=== PATIENT | female | born 1980 | race Caucasian/White ===

== ENCOUNTER 2020-11-11 21:31 | Inpatient (IN) ==
[2020-11-11] MEDS ORDERED: OXYTOCIN 30 UNITS/500 ML BAG IV PRN (22:21)
[2020-11-11] MEDS ORDERED: PENICILLIN G POTASSIUM 6 MU in DEXTROSE 5% 250 ML IV STA (22:22)
[2020-11-11 22:57] LABS: Hematocrit (blood only) 36.4 % (37-47); Hemoglobin 12.6 g/dL (12.0-16.0); Mean Corpuscular Hemoglobin 31.6 pg (25-34); Mean Corpuscular Hgb Conc 34.6 g/dL (32-36); Mean Corpuscular Volume 91.2 fL (80-100); Mean Platelet Volume 10.9 fL (7.4-10.4); Platelet Count 258 K/uL (130-400); RDW Coefficient of Variation 13.8 % (11.5-14.5); RDW Standard Deviation 45.4 fL (36.4-46.3); Red Blood Count 3.99 M/uL (4.2-5.4); White Blood Count 15.22 K/uL (4.8-10.8)
[2020-11-11] MEDS: LACTATED RINGER'S 1,000 ML IV PRN (22:58)
[2020-11-12] MEDS ORDERED: BUPIVACAINE 0.25% 30 ML VIAL ONE (01:49)
[2020-11-12] MEDS ORDERED: ePHEDrine sulfate 50 MG/ML AMP ONE (01:49)
[2020-11-12] MEDS ORDERED: fentaNYL citrate 100 MCG/2 ML VIAL ONE (01:49)
[2020-11-12] MEDS ORDERED: SODIUM CHLORIDE 0.9% INJ 10 ML VIAL ONE (01:49)
[2020-11-12] MEDS ORDERED: fentaNYL 2MCG/ML ROPIVACAINE 1.25MG/ML 100 ML BAG EPI ONE (01:50)
[2020-11-12] MEDS: LACTATED RINGER'S 1,000 ML IV PRN ×2 (02:28→07:54)
[2020-11-12] MEDS: PENICILLIN G POTASSIUM 3 MU in DEXTROSE 5% 100 ML IV SCH ×4 (02:28→09:56)
[2020-11-12] MEDS ORDERED: ePHEDrine sulfate 50 MG/ML AMP IV PRN (02:42)
[2020-11-12] MEDS ORDERED: NALOXONE HCL 0.4 MG/1 ML VIAL/CARP IV PRN (02:42)
[2020-11-12] MEDS ORDERED: diphenhydrAMINE 50 MG/ML VIAL IV PRN (02:42)
[2020-11-12] MEDS ORDERED: NALOXONE HCL 1 MG in SODIUM CHLORIDE 0.9% 1000ML 1,000 ML IV PRN (02:42)
[2020-11-12] MEDS ORDERED: fentaNYL 2MCG/ML ROPIVACAINE 1.25MG/ML 100 ML BAG EPI PRN (02:42)
--- NOTE | 2020-11-12 02:42 | Anesthesiology Consultation ---
Date of Service November 12, 2020 Assessment & Plan (1) Encounter for pre-operative examination: Chart Review Chart Review: Acceptable Risk for Surgery and Patient NOT seen in Pre Admission Testing Consults Requested none History Height/Weight Height: 5 ft 9 in Weight: 83.461 kg Allergies Allergy/AdvReac Type Severity Reaction Status Date / Time No Known Allergies Allergy Verified 11/11/20 22:34 Medications Home Medications Medication Instructions Recorded Confirmed Last Taken aspirin [Baby Aspirin] 81 mg PO DAILY 11/11/20 11/11/20 11/10/20 [id number] 1 tab PO 11/11/20 11/10/20 [] Active Medications Generic Name Dose Route Start Last Admin Trade Name Freq PRN Reason Stop Dose Admin Lactated Ringer's 1,000 mls @ 125 mls/hr 11/11/20 22:21 11/12/20 02:28 Lr IV 11/13/20 22:20 125 mls/hr .Q8H PRN Administration L&D Protocol Protocol Penicillin G Potassium 3 mu/ 106 mls @ 100 mls/hr 11/11/20 22:30 11/12/20 02:28 Dextrose IV 11/21/20 22:29 100 mls/hr Q4H DAVID Administration Protocol Past Medical History Medical History History of anxiety Past Surgical History Surgical History H/O colposcopy with cervical biopsy Social History Smoking Status: Never smoker Hx Alcohol Use: No Hx Substance Use: No Physical Exam Vital Signs Last Vital Signs Temp 37.2 C 11/12/20 01:24 Pulse 93 H 11/12/20 02:35 Resp 18 11/12/20 01:24 BP 139/82 11/12/20 01:24 Pulse Ox 97 11/12/20 02:35 Testing Laboratory Results 11/11/20 22:39
[2020-11-12] MEDS ORDERED: OXYTOCIN 30 UNITS/500 ML BAG IV PRN ×2 (04:15→19:06)
[2020-11-12] MEDS ORDERED: PENICILLIN G POTASSIUM 3 MU in DEXTROSE 5% 100 ML IV PRN (12:00)
[2020-11-12] MEDS ORDERED: LIDOCAINE HCL 1% 20 ML VIAL ONE (18:15)
[2020-11-12] MEDS ORDERED: BENZOCAINE 20% AER SPR 82.5 GM CAN EXT PRN (19:06)
[2020-11-12] MEDS ORDERED: bisacodyL 10 MG SUPP PR PRN (19:06)
[2020-11-12] MEDS ORDERED: SUPERCREAM 0.870% 15 GM JAR EXT PRN (19:06)
[2020-11-12] MEDS ORDERED: DIPHTHERIA/TETANUS/PERTUSSIS 0.5 ML SYR/VIAL IM ONE (19:06)
[2020-11-12] MEDS ORDERED: HYDROCORTISONE ACETATE 25 MG SUPP PR PRN (19:06)
--- NOTE | 2020-11-12 19:12 | Delivery Summary ---
Vaginal Delivery Summary Date of Service November 12, 2020 Vaginal Delivery Summary live female with vacuum assist three pulls and no pop offs. Apgars 2/8 with cord obtained for blood gas and cord blood. Placenta delivered spontaneously and intact. Second degree tear repaired with 1% Lidocaine infiltrated on perineum and repaired with 3/0 Vicryl suture. EBL 250 ml. Mom straight cathed for 400 ml chikis urine. Final sponge and needle and instrument count are correct. Mom and baby stable. e
[2020-11-12 19:36] LABS: Base Excess Cord Venous Blood -8.3 mEq/L (-7.7-1.9); Cord Venous Blood HCO3 16 mmol/L (18.4-26.8); Cord Venous Blood PCO2 32 mmHg (30.4-57.2); Cord Venous Blood PO2 33 mmHg (14.1-43.3); Cord Venous Blood pH 7.32 (7.20-7.44)
--- NOTE | 2020-11-12 20:07 | Anesthesia Procedure Note ---
Date of Service November 12, 2020 Anesthesia Post Epidural Note Vital Signs Vital Signs: Temp Pulse Resp BP Pulse Ox 36.3 C L 104 H 22 124/71 96 11/12/20 16:00 11/12/20 19:47 11/12/20 16:00 11/12/20 19:47 11/12/20 18:18 Notes Mental Status: alert / awake / arousable Nausea / Vomiting: adequately controlled Pain: adequately controlled Airway Patency, RR, SpO2: stable & adequate BP & HR: stable & adequate Hydration State: stable & adequate Neuraxial Anesthesia: was administered and sensory block is resolving Anesthetic Complications: no major complications apparent and Pt Satisfied with anesthetic care Epidural: Removed without complications and With tip intact
[2020-11-12] MEDS ORDERED: COUGH DROP (SUGAR FREE) LOZ 24 LOZ/1 BOX BUCCAL STA (20:43)
[2020-11-12] MEDS ORDERED: COUGH DROP (SUGAR FREE) LOZ 24 LOZ/1 BOX BUCCAL ONE (20:45)
[2020-11-12] MEDS: DOCUSATE SODIUM 100 MG CAP PO SCH (20:47)
[2020-11-12] MEDS: IBUPROFEN 600 MG TAB PO PRN (21:08)
[2020-11-13 06:23] LABS: Hematocrit (blood only) 28.6 % (37-47); Hemoglobin 9.9 g/dL (12.0-16.0); Mean Corpuscular Hemoglobin 31.5 pg (25-34); Mean Corpuscular Hgb Conc 34.6 g/dL (32-36); Mean Corpuscular Volume 91.1 fL (80-100); Mean Platelet Volume 10.4 fL (7.4-10.4); Platelet Count 241 K/uL (130-400); RDW Coefficient of Variation 14.3 % (11.5-14.5); RDW Standard Deviation 47.2 fL (36.4-46.3); Red Blood Count 3.14 M/uL (4.2-5.4); White Blood Count 25.98 K/uL (4.8-10.8)
--- NOTE | 2020-11-13 07:51 | Obstetrical Progress Note ---
Date of Service November 13, 2020 Assessment & Plan Admission and Anticipated Discharge Date Admission Date: November 11, 2020 Subjective Patient is seen and examined. She feels well, no complaints other than soreness. Ambulating without dizziness Voiding without difficulty Tolerating regular diet with out N&V Bleeding is minimal No fever/ chills/ CP/ SOB/ N&V/ Leg pain Breast feeding without problems Baby is in nursery. Vital Signs Temp Pulse Pulse Resp BP BP Pulse Ox 11/13/20 04:45 36.5 C 94 H 20 121/72 97 11/12/20 23:10 36.6 C 91 H 20 131/77 98 11/12/20 21:45 36.6 C 89 20 127/82 97 11/12/20 21:02 105 H 127/78 11/12/20 20:47 108 H 128/75 11/12/20 20:32 106 H 129/78 11/12/20 20:17 114 H 121/78 Lab Results 11/11/20 11/11/20 11/11/20 Range/Units 22:25 22:25 22:39 WBC 15.22 H (4.8-10.8) K/uL RBC 3.99 L (4.2-5.4) M/uL Hgb 12.6 (12.0-16.0) g/dL Hct 36.4 L (37-47) % MCV 91.2 (80-100) fL MCH 31.6 (25-34) pg MCHC 34.6 (32-36) g/dL RDW Std Deviation 45.4 (36.4-46.3) fL RDW Coeff of Edilma 13.8 (11.5-14.5) % Plt Count 258 (130-400) K/uL MPV 10.9 H (7.4-10.4) fL Cord VBG pH (7.20-7.44) Cord VBG pCO2 (30.4-57.2) mmHg Cord VBG pO2 (14.1-43.3) mmHg Cord VBG HCO3 (18.4-26.8) mmol/L Cord VBG Base Excess (-7.7-1.9) mEq/L Cord VBG O2 Sat (<68) % Barometric Pressure mm/Hg Blood Gas Comments COVID-19 [facility] SARS-[facility]-2, RNA, NAAT NEGATIVE (NEGATIVE) Direct Antiglob Test HEATHER (IgG-AHG) Baby's Blood Type 11/12/20 11/12/20 11/13/20 Range/Units 18:19 Unknown 06:03 WBC 25.98 H (4.8-10.8) K/uL RBC 3.14 L (4.2-5.4) M/uL Hgb 9.9 L (12.0-16.0) g/dL Hct 28.6 L (37-47) % MCV 91.1 (80-100) fL MCH 31.5 (25-34) pg MCHC 34.6 (32-36) g/dL RDW Std Deviation 47.2 H (36.4-46.3) fL RDW Coeff of Edilma 14.3 (11.5-14.5) % Plt Count 241 (130-400) K/uL MPV 10.4 (7.4-10.4) fL Cord VBG pH 7.32 (7.20-7.44) Cord VBG pCO2 32 (30.4-57.2) mmHg Cord VBG pO2 33 (14.1-43.3) mmHg Cord VBG HCO3 16 L (18.4-26.8) mmol/L Cord VBG Base Excess -8.3 L (-7.7-1.9) mEq/L Cord VBG O2 Sat 68.0 (<68) % Barometric Pressure 727.2 mm/Hg Blood Gas Comments MORE COVID-19 Eval Order SARS-CoV-2, RNA, NAAT (NEGATIVE) Direct Antiglob Test Cancelled HEATHER (IgG-AHG) Cancelled Baby's Blood Type Cancelled PE: General: Alert, orientedx3, NAD Abd: soft, NT, fundus firm, below Umbilicus Perineum intact, Lochia rubra minimal Ext; NT, no edema AP: 40 yo s/p Vacuum assisted , ppd# 1 VSS Afebrile doing well Continue routine care All questions were answered D/C home tomorrow Results & Data ([place]) Vital Signs (Past 12 Hours) Vital Signs Temp Pulse Pulse Resp BP BP Pulse Ox 11/13/20 04:45 36.5 C 94 H 20 121/72 97 11/12/20 23:10 36.6 C 91 H 20 131/77 98 11/12/20 21:45 36.6 C 89 20 127/82 97 11/12/20 21:02 105 H 127/78 11/12/20 20:47 108 H 128/75 11/12/20 20:32 106 H 129/78 11/12/20 20:17 114 H 121/78
[2020-11-13] MEDS ORDERED: FERROUS SULFATE 325 MG TAB PO SCH (08:00)
[2020-11-13] MEDS: DOCUSATE SODIUM 100 MG CAP PO SCH ×2 (08:25→20:40)
[2020-11-13] MEDS: IBUPROFEN 600 MG TAB PO PRN ×2 (08:26→17:04)
[2020-11-13] MEDS: PRENATAL VITAMIN 1 TAB PO SCH (08:26)
[2020-11-13] MEDS: ASPIRIN 81 MG ECTAB PO SCH (08:26)
[2020-11-13] MEDS: ACETAMINOPHEN 325 MG TAB PO PRN ×2 (08:26→17:05)
[2020-11-13] MEDS: FERROUS SULFATE 325 MG TAB PO SCH ×2 (09:03→20:40)
[2020-11-13] MEDS ORDERED: bisacodyL 5 MG TABEC PO SCH (20:00)
[2020-11-14] MEDS: ACETAMINOPHEN 325 MG TAB PO PRN ×2 (06:26→16:45)
[2020-11-14] MEDS: IBUPROFEN 600 MG TAB PO PRN ×3 (06:26→16:45)
[2020-11-14 06:28] LABS: Basophils # (auto) 0.04 K/uL (0-0.2); Basophils % (auto) 0.2 %; Eosinophils % (auto) 1.5 %; Hematocrit (blood only) 26.8 % (37-47); Immature Granulocytes # (auto) 0.26 K/uL (0.00-0.02); Immature Granulocytes % (auto) 1.3 %; Lymphocytes # (auto) 2.66 K/uL (1.2-3.4); Lymphocytes % (auto) 13.4 %; Mean Corpuscular Hgb Conc 33.6 g/dL (32-36); Mean Corpuscular Volume 92.4 fL (80-100); Mean Platelet Volume 10.2 fL (7.4-10.4); Monocytes # (auto) 1.16 K/uL (0.11-0.59); Monocytes % (auto) 5.9 %; Neutrophils # (auto) 15.36 K/uL (1.4-6.5); Neutrophils % (auto) 77.7 %; Platelet Count 245 K/uL (130-400); RDW Coefficient of Variation 14.5 % (11.5-14.5); RDW Standard Deviation 48.9 fL (36.4-46.3); White Blood Count 19.78 K/uL (4.8-10.8)
[2020-11-14] MEDS: DOCUSATE SODIUM 100 MG CAP PO SCH (08:34)
[2020-11-14] MEDS: PRENATAL VITAMIN 1 TAB PO SCH (08:34)
[2020-11-14] MEDS: ASPIRIN 81 MG ECTAB PO SCH (08:34)
[2020-11-14] MEDS: FERROUS SULFATE 325 MG TAB PO SCH (08:34)
--- NOTE | 2020-11-14 12:35 | Obstetrical Progress Note ---
Date of Service November 14, 2020 Assessment & Plan Admission and Anticipated Discharge Date Admission Date: November 11, 2020 Subjective Patient is seen and examined. She feels better, noted blood in toilet after BM. No h/o hemorrhoid/ constipation. Ambulating without dizziness Voiding without difficulty Tolerating regular diet with out N&V Bleeding is minimal No fever/ chills/ CP/ SOB/ N&V/ Leg pain Breast feeding without problems Vital Signs Temp Pulse Resp BP Pulse Ox 11/14/20 08:39 36.3 C L 75 16 137/86 98 11/13/20 23:45 36.6 C 91 H 20 138/82 97 11/13/20 20:30 37.0 C 103 H 18 127/83 11/13/20 15:35 36.5 C 95 H 21 116/68 99 11/13/20 12:40 36.8 C 94 H 21 119/72 98 Lab Results 11/11/20 11/11/20 11/11/20 Range/Units 22:25 22:25 22:39 WBC 15.22 H (4.8-10.8) K/uL RBC 3.99 L (4.2-5.4) M/uL Hgb 12.6 (12.0-16.0) g/dL Hct 36.4 L (37-47) % MCV 91.2 (80-100) fL MCH 31.6 (25-34) pg MCHC 34.6 (32-36) g/dL RDW Std Deviation 45.4 (36.4-46.3) fL RDW Coeff of Edilma 13.8 (11.5-14.5) % Plt Count 258 (130-400) K/uL MPV 10.9 H (7.4-10.4) fL Immature Gran % (Auto) % Neut % (Auto) % Lymph % (Auto) % Ray % (Auto) % Eos % (Auto) % Baso % (Auto) % Neut # (Auto) (1.4-6.5) K/uL Lymph # (Auto) (1.2-3.4) K/uL Ray # (Auto) (0.11-0.59) K/uL Eos # (Auto) (0-0.5) K/uL Baso # (Auto) (0-0.2) K/uL Immature Gran # (Auto) (0.00-0.02) K/uL Cord VBG pH (7.20-7.44) Cord VBG pCO2 (30.4-57.2) mmHg Cord VBG pO2 (14.1-43.3) mmHg Cord VBG HCO3 (18.4-26.8) mmol/L Cord VBG Base Excess (-7.7-1.9) mEq/L Cord VBG O2 Sat (<68) % Barometric Pressure mm/Hg Blood Gas Comments COVID-19 [facility] SARS-[facility]-2, RNA, NAAT NEGATIVE (NEGATIVE) Direct Antiglob Test HEATHER (IgG-AHG) Baby's Blood Type 11/12/20 11/12/20 11/13/20 Range/Units 18:19 Unknown 06:03 WBC 25.98 H (4.8-10.8) K/uL RBC 3.14 L (4.2-5.4) M/uL Hgb 9.9 L (12.0-16.0) g/dL Hct 28.6 L (37-47) % MCV 91.1 (80-100) fL MCH 31.5 (25-34) pg MCHC 34.6 (32-36) g/dL RDW Std Deviation 47.2 H (36.4-46.3) fL RDW Coeff of Edilma 14.3 (11.5-14.5) % Plt Count 241 (130-400) K/uL MPV 10.4 (7.4-10.4) fL Immature Gran % (Auto) % Neut % (Auto) % Lymph % (Auto) % Ray % (Auto) % Eos % (Auto) % Baso % (Auto) % Neut # (Auto) (1.4-6.5) K/uL Lymph # (Auto) (1.2-3.4) K/uL Ray # (Auto) (0.11-0.59) K/uL Eos # (Auto) (0-0.5) K/uL Baso # (Auto) (0-0.2) K/uL Immature Gran # (Auto) (0.00-0.02) K/uL Cord VBG pH 7.32 (7.20-7.44) Cord VBG pCO2 32 (30.4-57.2) mmHg Cord VBG pO2 33 (14.1-43.3) mmHg Cord VBG HCO3 16 L (18.4-26.8) mmol/L Cord VBG Base Excess -8.3 L (-7.7-1.9) mEq/L Cord VBG O2 Sat 68.0 (<68) % Barometric Pressure 727.2 mm/Hg Blood Gas Comments MORE COVID-19 Eval Order SARS-CoV-2, RNA, NAAT (NEGATIVE) Direct Antiglob Test Cancelled HEATHER (IgG-AHG) Cancelled Baby's Blood Type Cancelled 11/14/20 Range/Units 06:09 WBC 19.78 H (4.8-10.8) K/uL RBC 2.90 L (4.2-5.4) M/uL Hgb 9.0 L (12.0-16.0) g/dL Hct 26.8 L (37-47) % MCV 92.4 (80-100) fL MCH 31.0 (25-34) pg MCHC 33.6 (32-36) g/dL RDW Std Deviation 48.9 H (36.4-46.3) fL RDW Coeff of Edilma 14.5 (11.5-14.5) % Plt Count 245 (130-400) K/uL MPV 10.2 (7.4-10.4) fL Immature Gran % (Auto) 1.3 % Neut % (Auto) 77.7 % Lymph % (Auto) 13.4 % Ray % (Auto) 5.9 % Eos % (Auto) 1.5 % Baso % (Auto) 0.2 % Neut # (Auto) 15.36 H (1.4-6.5) K/uL Lymph # (Auto) 2.66 (1.2-3.4) K/uL Ray # (Auto) 1.16 H (0.11-0.59) K/uL Eos # (Auto) 0.30 (0-0.5) K/uL Baso # (Auto) 0.04 (0-0.2) K/uL Immature Gran # (Auto) 0.26 H (0.00-0.02) K/uL Cord VBG pH (7.20-7.44) Cord VBG pCO2 (30.4-57.2) mmHg Cord VBG pO2 (14.1-43.3) mmHg Cord VBG HCO3 (18.4-26.8) mmol/L Cord VBG Base Excess (-7.7-1.9) mEq/L Cord VBG O2 Sat (<68) % Barometric Pressure mm/Hg Blood Gas Comments COVID-19 Eval Order SARS-CoV-2, RNA, NAAT (NEGATIVE) Direct Antiglob Test HEATHER (IgG-AHG) Baby's Blood Type PE: General: Alert, orientedx3, NAD Abd: soft, NT, fundus firm, below Umbilicus Perineum intact, Lochia rubra minimal Anal skin normal,no blood, no hemorrhoids Ext; NT, no edema AP: 40 yo s/p , ppd# 2 VSS Afebrile doing well Continue routine care All questions were answered Discussed when to call Recommended to keep eye on blood on stool and call PCP/ G Surgery D/C home or nesting, f/u in office [facility] Vital Signs (Past 12 Hours) Vital Signs Temp Pulse Resp BP Pulse Ox 11/14/20 08:39 36.3 C L 75 16 137/86 98
== END 2020-11-14 20:15 | disposition home or self-care (01) | DRG 806 ==
LOC: OPB 21:31 → 4S1 21:32 → 4S2 11-12 21:35